=== PATIENT | female | born 1940 | race Two or more races ===

== ENCOUNTER 2024-06-17 06:17 | Emergency (ER) | payer MEDICARE ==
[~2024-06-17] VITALS: Ht 167.6 cm; Wt 79.4 kg
[2024-06-17] MEDS ORDERED: ONDANSETRON HCL/PF 4 MG/2 ML VIAL ONE (06:30)
[2024-06-17] MEDS ORDERED: VANCOMYCIN 1 GM /D5W 250 ML PB IV ONE (06:30)
[2024-06-17] MEDS ORDERED: CEFEPIME 1 GM VIAL ONE (06:30)
[2024-06-17] MEDS ORDERED: ACETAMINOPHEN ES 500 MG TABLET ONE (06:30)
[2024-06-17 06:44] LABS: BASOPHILS % (AUTO) 0.2 % (0.0-2.0); EOSINOPHILS # (AUTO) 0.1 K/uL (0.0-0.7); EOSINOPHILS % (AUTO) 1.6 % (0.0-6.0); HEMATOCRIT 32 % (33-45); HEMOGLOBIN 10.8 g/dL (11.5-14.8); LYMPHOCYTES # (AUTO) 0.4 K/uL (0.8-4.8); MEAN CORPUSCULAR HEMOGLOBIN 35 PG (26.0-33.0); MEAN CORPUSCULAR HGB CONC 34 g/dl (31.0-36.0); MEAN CORPUSCULAR VOLUME 102 fL (82-100); MONOCYTES # (AUTO) 0.6 K/uL (0.1-1.30); MONOCYTES % (AUTO) 14.9 % (2.0-12.0); NEUTROPHILS % (AUTO) 72.3 % (43.0-81.0); PLATELET COUNT (AUTO) 263 K/uL (150-450); RED BLOOD CELL COUNT(AUTO) 3.13 MIL/uL (4.0-5.2); RED CELL DISTRIBUTION WIDTH 13.3 % (11.5-15.0); WHITE BLOOD COUNT (AUTO) 4.1 K/uL (4.3-11.0)
[2024-06-17] MEDS: ONDANSETRON HCL/PF 4 MG/2 ML VIAL IV ONE (06:45)
[2024-06-17] MEDS: IV NS 0.9% 1,000 ML BAG IV ONE (06:45)
[2024-06-17] MEDS: ACETAMINOPHEN ES 500 MG TABLET PO ONE (06:45)
[2024-06-17] MEDS: CEFEPIME 1 GM in IV D5W 50 ML IV ONE (06:45)
[2024-06-17 06:53] LABS: CALCIUM, SERUM 8.2 mg/dL (8.5-10.1); CARBON DIOXIDE 27 mmol/L (21-32); CHLORIDE 98 mmol/L (98-107); CREATININE 0.9 mg/dL (0.6-1.3); GLUCOSE 120 mg/dL (74-106); POTASSIUM 3.9 mmol/L (3.5-5.1); SODIUM SERUM 134 mmol/L (136-145); UREA NITROGEN, BLOOD 14 mg/dL (7-18)
[2024-06-17 06:59] LABS: ALANINE AMINOTRANSFERASE 15 U/L (12-78); ALBUMIN 2.9 g/dL (3.4-5.0); ALKALINE PHOSPHATASE 61 U/L (46-116); ASPARTATE AMINOTRANSFERASE 14 U/L (15-37); BILIRUBIN,DIRECT 0.5 mg/dL (0.0-0.2); BILIRUBIN,TOTAL 1.5 mg/dL (0.2-1.0)
[2024-06-17 07:04] LABS: LACTIC ACID 1.7 mmol/L (0.4-2.0)
[2024-06-17] MEDS: VANCOMYCIN 1 GM in IV D5W 250 ML IV ONE (07:06)
[2024-06-17 07:09] LABS: INR 1.01 (0.91-1.10); PARTIAL THROMBOPLASTIN TIME 31.3 SEC (24.3-34.3); PROTHROMBIN TIME 10.7 SECS (9.2-11.1)
[2024-06-17 09:51] LABS: APPEARANCE,URINE CLEAR (CLEAR); BILIRUBIN,URINE NEGATIVE (NEGATIVE); BLOOD, URINE TRACE-INTA Ery/uL (NEGATIVE); COLOR,URINE YELLOW (YELLOW); KETONES,URINE NEGATIVE (NEGATIVE); LEUKOCYTE ESTERASE ,URINE NEGATIVE (NEGATIVE); NITRITE, URINE NEGATIVE (NEGATIVE); PROTEIN,URINE NEGATIVE (NEGATIVE); UGLUCOSE NEGATIVE (NEGATIVE); UROBILINOGEN,URINE 0.2 EU/dL (0.2)
[2024-06-17 11:06] LABS: SQUAMOUS EPITHELIAL CELL,UR Few /HPF (None Seen)
[2024-06-17 11:07] LABS: ADD URINE CULTURE NO; BACTERIA,URINE Rare /HPF (None Seen); RBC,URINE 0-2 /HPF (0-2); WBC,URINE 0-2 /HPF (0-3)
[2024-06-17 11:24] VITALS: BP 138/75; TEMP 102; O2SAT 97
== END 2024-06-17 11:25 | disposition home or self-care (01) ==
LOC: ER 06:19 → MED 10:09 → UNDOADMIN 10:09 → UNDODISIN 11:20 → ER 11:25
DX: R50.82 Postprocedural fever (principal); R65.10 Systemic inflammatory response syndrome (SIRS) of non-infectious origin without acute organ dysfunction; Z60.2 Problems related to living alone; Z96.651 Presence of right artificial knee joint
CPT/HCPCS: 99291; 96365; 71045; 96375; 87426; 96368; 93005; 87804 ×2; 73564; 84145; 85025; 80048; 87040; 87086; 83605; 80076; 85652; 81001; 36415; 84484 ×2; 85730; 86140; J3370 ×2; J2405; J7060; J0692 ×2; G0378